=== PATIENT | male | born 1990 ===

== ENCOUNTER 2019-01-18 22:33 | Emergency (ER) | payer OTHER ==
[~2019-01-18] VITALS: Ht 175.3 cm; Wt 95.0 kg
[2019-01-18 22:55] VITALS: BP 147/87
== END 2019-01-18 23:00 | disposition home or self-care (01) ==
LOC: ER 22:34
DX: Z04.1 Encounter for examination and observation following transport accident (principal); V49.88XA Car occupant (driver) (passenger) injured in other specified transport accidents, initial encounter; Y93.89 Activity, other specified; Y92.413 State road as the place of occurrence of the external cause; Y99.9 Unspecified external cause status
CPT/HCPCS: 99283